=== PATIENT | female | born 1995 | race Caucasian/White ===

== ENCOUNTER → 2019-12-06 | Outpatient (CLI) | payer OTHER ==
--- NOTE | 2019-12-06 17:22 | RAD ---
EXAM: Ultrasound OB Greater than 14 weeks INDICATION: Estimated weight and anatomic survey. 28 weeks. TECHNIQUE: Real-time obstetrical ultrasound was performed with permanent freeze-frame documentation. COMPARISON: None. FINDINGS: POSITION: Breech HEART RATE: 137 bpm OSCAR: 10.5 cm PLACENTA: Anterior CERVICAL LENGTH: 3.8 cm MATERNAL UTERUS: Unremarkable. MATERNAL ADNEXA: Unremarkable. AGE/DATES: Gestational Age by LMP: 28 weeks 1 day Gestation Age by US: 27 weeks 6 days EDC by LMP: February 27, 2020 EDC by US: February 29, 2020 WEIGHT: 1134 grams +/- 168 grams PERCENTILE WEIGHT: 44%Unremarkable. BIOMETRIC PARAMETERS: BPD: 6.8 cm corresponding with 27 weeks 3 days HC: 26.2 cm corresponding with 28 weeks 3 days AC: 23.1 cm corresponding with 27 weeks 3 days FL: 5.3 cm corresponding with 28 weeks 2 days ANATOMY: CARDIAC: Normal four chamber heart. Normal right and left ventricular outflow tracts. UMBILICAL CORD: Normal 3 vessel cord. Normal cord insertion. BRAIN: Unremarkable. NOSE/LIPS: Not well seen SPINE: Unremarkable. EXTREMITIES: Unremarkable. STOMACH: Unremarkable. KIDNEYS: Unremarkable. BLADDER: Unremarkable. IMPRESSION: Normal OB ultrasound demonstrating a single viable fetus in breech position. Estimated gestational age of 27 weeks 6 days and EDC of February 29, 2020. Note that amniotic fluid volume is low normal. This limited detailed evaluation of anatomy, including assessment of the nose and lips, facial profile and orbits.. Electronically signed by: Anthony Almaraz MD (12/06/2019 5:19 PM) [id number]
== END | disposition home or self-care (01) ==
LOC: US 11:15
PROVIDERS: ATTEND Obstetrics & Gynecology
DX: O26.842 Uterine size-date discrepancy, second trimester (principal); Z3A.27 27 weeks gestation of pregnancy
CPT/HCPCS: 76805